=== PATIENT | female | born 1955 | race Caucasian/White ===

== ENCOUNTER 2020-01-11 11:22 | Outpatient (CLI) | payer MEDICARE, SELFPAY ==
[2020-01-11 11:38] LABS: Basophils Percent Auto 0.7 % (0.2-1.2); Eosinophils Absolute Auto 0.3 K/mm3 (0-0.3); Eosinophils Percent Auto 5.8 % (0-4.4); Hematocrit 39.2 % (37.0-47.0); Hemoglobin 12.9 g/dL (12.0-15.0); Immature Granulocyte Absolute 0.01 K/mm3 (0.00-0.031); Immature Granulocyte Percent A 0.2 % (0-0.5); Lymphocytes Absolute Auto 1.46 K/mm3 (0.9-3.2); Lymphocytes Percent Auto 26.6 % (18.3-44.2); Mean Corpuscular HGB Conc 32.9 g/dl (32-36); Mean Corpuscular Hemoglobin 29.2 pg (26-34); Mean Corpuscular Volume 88.7 fl (80-100); Mean Platelet Volume 9.1 fl (7.4-10.4); Monocytes Absolute Auto 0.6 K/mm3 (0.1-0.6); Monocytes Percent Auto 11.1 % (2.6-8.5); Neutrophils Percent Auto 55.6 % (45.5-73.1); Platelet Count Result 214 k/mm3 (150-375); Red Blood Count 4.42 M/mm3 (4.2-5.4); Red Cell Distribution Width 13.8 % (11.5-14.5); White Blood Count 5.5 K/mm3 (4.5-10.0)
[2020-01-11 11:41] LABS: Blood Urea Nitrogen 15 mg/dL (8-26); Carbon Dioxide 28 mmol/L (22-30); Chloride 103 mmol/L (98-109); Estimated Glomerular Filt Rate > 60; Glucose 109 mg/dL (70-105); Potassium 3.9 mmol/L (3.5-4.9); Sodium 141 mmol/L (138-146)
[2020-01-11 16:40] LABS: Alanine Aminotransferase 15 U/L (4-35); Albumin Level 4.3 g/dL (3.5-5.1); Alkaline Phosphatase 50 U/L (38-126); Aspartate Amino Transferase 24 U/L (14-36); Bilirubin,Total 0.3 mg/dL (0.2-1.3); Blood Urea Nitrogen 16 mg/dL (7-17); Calcium 9.6 mg/dL (8.4-10.2); Carbon Dioxide 26 mmol/L (22-30); Chloride 100 mmol/L (98-107); Estimated Glomerular Filt Rate > 60; Glucose 110 mg/dL (65-105); Lactate Dehydrogenase 319 U/L (313-618); Potassium 4.2 mmol/L (3.4-5.0); Sodium 140 mmol/L (137-145)
== END 2020-01-11 11:23 | disposition home or self-care (01) ==
LOC: ANHLAB 11:27
PROVIDERS: PCP Internal Medicine; Visit Provider Internal Medicine Hematology & Oncology
DX: C82.94 Follicular lymphoma, unspecified, lymph nodes of axilla and upper limb (principal)
CPT/HCPCS: 36415; 80048; 80053; 83615; 85025

== ENCOUNTER 2021-02-06 16:08 | Outpatient (CLI) | payer MEDICARE, SELFPAY ==
[2021-02-06 16:17] LABS: Basophils Percent Auto 0.6 % (0.2-1.2); Eosinophils Absolute Auto 0.5 K/mm3 (0-0.3); Eosinophils Percent Auto 7.2 % (0-4.4); Hemoglobin 13.3 g/dL (12.0-15.0); Immature Granulocyte Absolute 0.02 K/mm3 (0.00-0.031); Immature Granulocyte Percent A 0.3 % (0-0.5); Lymphocytes Absolute Auto 1.99 K/mm3 (0.9-3.2); Lymphocytes Percent Auto 28.7 % (18.3-44.2); Mean Corpuscular HGB Conc 33.3 g/dl (32-36); Mean Corpuscular Hemoglobin 29.3 pg (26-34); Mean Corpuscular Volume 88.1 fl (80-100); Mean Platelet Volume 9.1 fl (7.4-10.4); Monocytes Absolute Auto 0.6 K/mm3 (0.1-0.6); Monocytes Percent Auto 8.2 % (2.6-8.5); Neutrophils Absolute Auto 3.8 K/mm3 (1.3-6.7); Platelet Count Result 252 k/mm3 (150-375); Red Blood Count 4.54 M/mm3 (4.2-5.4); Red Cell Distribution Width 13.5 % (11.5-14.5); White Blood Count 6.9 K/mm3 (4.5-10.0)
[2021-02-07 07:11] LABS: Alanine Aminotransferase 17 U/L (4-35); Albumin Level 4.1 g/dL (3.5-5.1); Alkaline Phosphatase 49 U/L (38-126); Anion Gap 6 mmol/L (8-16); Aspartate Amino Transferase 20 U/L (14-36); Bilirubin,Total 0.2 mg/dL (0.2-1.3); Blood Urea Nitrogen 20 mg/dL (7-17); Calcium 9.6 mg/dL (8.4-10.2); Carbon Dioxide 30 mmol/L (22-30); Chloride 104 mmol/L (98-107); Estimated Glomerular Filt Rate > 60; Glucose 177 mg/dL (65-105); Lactate Dehydrogenase 356 U/L (313-618); Potassium 3.8 mmol/L (3.4-5.0); Sodium 140 mmol/L (137-145)
== END 2021-02-06 16:09 | disposition home or self-care (01) ==
LOC: ANHLAB 16:10
PROVIDERS: PCP Internal Medicine; Visit Provider Internal Medicine Hematology & Oncology
DX: C82.94 Follicular lymphoma, unspecified, lymph nodes of axilla and upper limb (principal)
CPT/HCPCS: 36415; 80053; 83615; 85025

== ENCOUNTER 2021-11-07 15:31 | Outpatient (CLI) | payer MEDICARE, SELFPAY ==
[2021-11-07 15:45] LABS: Basophils Absolute Auto 0.1 K/mm3 (0.0-0.1); Basophils Percent Auto 0.6 % (0.2-1.2); Eosinophils Absolute Auto 0.4 K/mm3 (0-0.3); Eosinophils Percent Auto 5.7 % (0-4.4); Hematocrit 42.6 % (37.0-47.0); Hemoglobin 13.5 g/dL (12.0-15.0); Immature Granulocyte Absolute 0.02 K/mm3 (0.00-0.031); Immature Granulocyte Percent A 0.3 % (0-0.5); Lymphocytes Absolute Auto 2.07 K/mm3 (0.9-3.2); Lymphocytes Percent Auto 26.8 % (18.3-44.2); Mean Corpuscular HGB Conc 31.7 g/dl (32-36); Mean Corpuscular Hemoglobin 28.7 pg (26-34); Mean Corpuscular Volume 90.4 fl (80-100); Mean Platelet Volume 9.1 fl (7.4-10.4); Monocytes Absolute Auto 0.5 K/mm3 (0.1-0.6); Monocytes Percent Auto 6.5 % (2.6-8.5); Neutrophils Absolute Auto 4.6 K/mm3 (1.3-6.7); Neutrophils Percent Auto 60.1 % (45.5-73.1); Nucleated Red Blood Cells Perc 0.3 % (0.0-0.2); Platelet Count Result 246 k/mm3 (150-375); Red Blood Count 4.71 M/mm3 (4.2-5.4); Red Cell Distribution Width 13.9 % (11.5-14.5); White Blood Count 7.7 K/mm3 (4.5-10.0)
[2021-11-07 15:49] LABS: Blood Urea Nitrogen 24 mg/dL (8-26); Carbon Dioxide 28 mmol/L (22-30); Chloride 104 mmol/L (98-109); Estimated Glomerular Filt Rate 45; Glucose 74 mg/dL (70-105); Potassium 4.3 mmol/L (3.5-4.9); Sodium 143 mmol/L (138-146)
[2021-11-07 17:05] LABS: Alanine Aminotransferase 12 U/L (4-35); Albumin Level 4.7 g/dL (3.5-5.1); Alkaline Phosphatase 65 U/L (38-126); Anion Gap 8 mmol/L (8-16); Aspartate Amino Transferase 18 U/L (14-36); Bilirubin,Total 0.3 mg/dL (0.2-1.3); Blood Urea Nitrogen 20 mg/dL (7-17); Calcium 9.9 mg/dL (8.4-10.2); Carbon Dioxide 29 mmol/L (22-30); Chloride 102 mmol/L (98-107); Estimated Glomerular Filt Rate 41; Glucose 76 mg/dL (65-110); Lactate Dehydrogenase 372 U/L (313-618); Potassium 4.1 mmol/L (3.4-5.0); Sodium 139 mmol/L (137-145)
== END 2021-11-07 15:32 | disposition home or self-care (01) ==
LOC: ANHLAB 15:34
PROVIDERS: PCP Internal Medicine Hematology & Oncology; Visit Provider Internal Medicine Hematology & Oncology
DX: C82.94 Follicular lymphoma, unspecified, lymph nodes of axilla and upper limb (principal)
CPT/HCPCS: 36415; 80053; 82374; 82435; 82565; 82947; 83615; 84132; 84295; 84520; 85025

== ENCOUNTER 2025-06-21 13:39 | Outpatient (RCR) | payer MEDICARE, SELFPAY ==
--- NOTE | 2025-06-21 14:41 | OPREHPOC ---
Outpatient Therapy Plan of Care This is a Multidisciplinary Plan of Care that may contain components documented by all disciplines (PT, OT, and ST.) PT Problem 1 PT Problem #1 Knowledge Deficit PT Goal 1 Goal / Goal Update 1. Patient will perform independent HEP Target Visit 2 PT Problem 2 PT Problem #2 Pain PT Goal 1 Goal / Goal Update 1. No abdominal pain higher than 3/10 Target Visit 4 PT Problem 3 PT Problem #3 Impaired Functional ADLs PT Goal 1 Goal / Goal Update 1. Patient will report BM 5 days out of 7 2. Patient will not need to sit on toilet more than 10 minutes for BM Target Visit 4 PT Problem 4 PT Problem #4 Impaired Strength PT Goal 1 Goal / Goal Update 1. Improve pelvic floor strength to 4/5 2. Improve pelvic floor endurance to 10 seconds 3. Improve bilateral hip strength to 4/5 Target Visit 4
--- NOTE | 2025-06-21 14:41 | PTOPEVAL1 ---
Assessment and note entered by Catalina Reza DPT Evaluation Information Assessment Status Evaluation Diagnosis k62.3 ICD-10 Condition Codes (PT) Weakness R53.1 Subjective Information Pt reports constipation and difficulty having BM, order is for rectal prolapse. Voids more than 10 times a day and 2-3 times at night. Denies pain with urination. Denies urinary incontinence. Can hold urge to void up to 30 minutes. BM 1-2 times a week and has been slowly worsening for several years. Can sit on the toilet up to 45 minutes for BM. Denies fecal incontinence. Abdominal pain from constipation 8/10 and lowest 0/10. Denies history of pelvic pain. Pt has been 5 times, delivered 2 times vaginally. Episiotomy with first child. Previous tubal ligation. 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 Patient goal: be able to go to the bathroom. patient states she has to use a suppository or enema. 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 Multiple neck surgeries but no lumbar. States her L leg does not work the way it should. Fall in January. Reported Pain Level Pain Score 0: Self Report Assessment PT Clinical Summary The patient is presenting to skilled therapy with a several year history of constipation and a diagnosis of rectal prolapse. She presents with decreased hip and abdominal strength and decreased ability to contract and hold pelvic floor musculature. She will benefit from therapy to address these impairments in order to reduce constipation and symptoms of prolapse in order to return to full function. Plan of Care Interventions Electrical Stimulation,Gait Training,Manual Therapy,Neuro Re-education,Patient/Caregiver Education,Therapeutic Activities,Therapeutic Exercise PT Services Indicated Yes Treatment Frequency and 1 time a week for 4 visits Duration These treatments will address the objective and functional deficits as defined above. The patient will be advanced safely and appropriately in order for the patient to progress towards his/her prior level of function. Additional exercises will be introduced and as well as a comprehensive home exercise program upon discharge, if needed, ?to ensure carryover of functional gains achieved in the clinic. This treatment plan has been reviewed and agreement upon by the patient.
--- NOTE | 2025-07-08 15:17 | PCPTNOTE ---
Patient did not show up for appointment 07/08/25.
--- NOTE | 2025-07-22 11:04 | PCPTNOTE ---
Patient did not show up for appointment scheduled 07/22/25.
--- NOTE | 2025-08-04 09:44 | PTOPDC ---
Assessment and note entered by Catalina Reza DPT Evaluation Information Assessment Status Discharge - Pt Not Present Diagnosis k62.3 ICD-10 Condition Codes (PT) Weakness R53.1 Subjective Information - Assessment PT Clinical Summary The patient has not attended therapy since her initial evaluation on 06/21/25. Her case will be discharged this date. Plan of Care PT Services Indicated No
== END 2025-08-04 13:20 | disposition home or self-care (01) ==
LOC: ANHGOSHPT 13:39
PROVIDERS: PCP Internal Medicine Hematology & Oncology
DX: K62.3 Rectal prolapse (principal)
CPT/HCPCS: 97110; 97140; 97162